=== PATIENT | female | born 1980 | race African-American/Black ===

== ENCOUNTER 2023-04-15 15:28 | Emergency (ER) | payer SELFPAY ==
--- OUTSIDE RECORDS SUMMARY | 2023-04-15 15:33 | XMS REPORT | Continuity of Care Document ---
:1980 Author Organization [facility] t Address [address] [place] [address] Care Team Providers Name Role Phone MAIA GAFFNEY Primary Care Physician Unavailable Brice Tucker Attending Clinician BRICE ARGUELLO Attending Clinician Unavailable BRICE ARGUELLO Admitting Clinician Unavailable Problems This patient has no known problems. Allergies, Adverse Reactions, Alerts Allergy Allergy Status Severity Reaction(s) Onset Inactive Treating Comm ents Source Name Type Date Date Clinician NO KNOWN Drug Active Univers ALLERGIE [facility] ity of [facility] Social History Social Habit Start Date Stop Date Quantity Comments Source History of Smokes tobacco University of tobacco use daily [facility] Tobacco use and 2018-02-22 2018-02-22 Smokeless tobacco Un iversity of exposure 00:00:00 00:00:00 non-user [facility] Sex Assigned At [birth year] Universit y of 00:00:00 00:00:00 [facility] Smoking Status Start Date Stop Date Source Smokes tobacco daily 2018-02-22 00:00:00 [facility] Medications Ordered Filled Start Stop Current Ordering Indication Dosage Frequency Signature Comments Components Source Medication Medication Date Date Medication? Clinician (SIG) Name Name ibuprofen No 800mg 800 mg, Uni vers (IBU) 12-13 Oral, ity of tablet 800 01:30: 01:30 ONCE, 1 [place] as mg 00 :00 dose, On Medical Tu12/12/22 Branch at 2030, SEBASTIAN traMADoL No 50mg 50 mg, Univer s (ULTRAM) 12-13 Oral, ity of tablet 50 01:22: 01:30 [place]CE, 1 [place] :[place] dose, On Medical Sun12/12/22 Branch at 2030, SEBASTIAN ibuprofen Yes [id number] 800mg Take 1 Univers 800 mg 12-12 9104 tablet by ity of tablet 00:00: mouth [place] 00 every 8 Medical (eight) Branch hours as needed for Pain (scale 4-6). traMADoL 50 No [id number] 50mg Take 1 Uni vers mg tablet 12-12 tablet by ity of 00:00: 04:59 mouth [place] 00 :00 every 8 Medical (eight) Branch hours as needed for Pain (scale 4-6) for up to 7 days. Indication s: acute pain cyclobenzap Yes 5mg Take 1 Univ ers rine 5 mg 9- tablet by ity o f tablet 00:00: mouth 3 [place] 00 (three) Medical times Branch daily. traMADOL Yes 50mg Take 1 Univers (ULTRAM) 50 9-06 tablet by ity of mg tablet 00:00: mouth [place] 00 every 6 Medical (six) Branch hours as needed for Pain (scale 4-6). Vital Signs Vital Name Observation Time Observation Value Comments Source Systolic blood 2022-12-13 01:06:00 144 mm[facility]Hg[facility] [place] [facility] Diastolic blood 2022-12-13 01:06:00 87 mm[facility]Hg[facility] [place] [facility] [place] Heart rate 2022-12-13 01:06:00 80 /min [facility] Body temperature 2022-12-13 01:06:00 37.22 [facility] Respiratory rate 2022-12-13 01:06:00 18 /min [facility] Body height 2022-12-13 01:06:00 170.2 cm [facility] Body weight 2022-12-13 01:06:00 99.338 kg [facility] BMI 2022-12-13 01:06:00 34.30 kg/m2 [facility] Oxygen saturation in 2022-12-13 01:06:00 98 /min [facility] Arterial blood by [facility] Pulse oximetry Branch Procedures Procedure Date / Time Performed Performing Clinician [facility] ASSIGNMENT OF BENEFITS 2022-12-13 01:28:55 Doctor Unassigned, No [facility] CONSENT/REFUSAL FOR 2022-12-13 01:01:44 Doctor Unassigned, No [facility] DIAGNOSIS AND [facility] TREATMENT Encounters Start End Encounter Admission Attending Care Care Encounter Source Date/Time Date/Time Type Type Clinicians Facility Department ID 2022-12-12 2022-12-12 Emergency [facility] [id number] Univers 20:10:00 21:34:00 [place] [id number] i ty [facility] [id number] [facility] [id number] [facility] 084 Branch 2022-12-12 2022-12-12 Emergency X [facility] ERT [id number] Univers 20:10:00 21:34:00 BRICE angel [facility] Results This patient has no known results.
[2023-04-15] MEDS ORDERED: ACETAMINOPHEN 500 MG TAB ONE (17:30)
[2023-04-15 17:55] LABS: SARS-CoV-2 Antigen Rapid Res Negative (Negative)
--- NOTE | 2023-04-15 18:17 | ER ---
Nurse's Notes [facility] Name: Camille Chandler Age: 43 yrs Sex: Female : 1980 Arrival Date: 04/15/2023 Time: 15:28 Bed 11 Private MD: Diagnosis: Influenza due to identified novel influenza A virus with other respiratory manifestations Presentation: 04/15 15:47 Chief complaint: Patient states: fever onset and is now having eye pain. Pt cm10 denies congestion. Reports dry cough. Coronavirus screen: Vaccine status: Patient reports being unvaccinated. Client denies travel out of the [place] in the last 14 days. Ebola Screen: Patient denies travel to an Ebola-affected area in the 21 days before illness onset. No symptoms or risks identified at this time. Initial Sepsis Screen: Does the patient meet any 2 criteria? No. Patient's initial sepsis screen is negative. Does the patient have a suspected source of infection? No. Patient's initial sepsis screen is negative. Risk Assessment: Do you want to hurt yourself or someone else? Patient reports no desire to harm self or others. Onset of symptoms was April 15, 2023. 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 - Social history:: Smoking status: Patient reports the use of cigarette tobacco products, denies chronic smoking, but will smoke occasionally. Screenin:20 [facility] ED Fall Risk Assessment (Adult) History of falling in the last 3 months, jl7 including since admission No falls in past 3 months (0 pts) Score/Fall Risk Level 0 - 2 = Low Risk Oriented to surroundings, Maintained a safe environment. Abuse screen: Denies threats or abuse. Denies injuries from another. Nutritional screening: No deficits noted. Tuberculosis screening: No symptoms or risk factors identified. Assessment: 17:20 General: Appears in no apparent distress. uncomfortable, Behavior is calm, cooperative, jl7 appropriate for age. Pain: Complains of pain in headache, sinus pressure Pain currently is 8 out of 10 on a pain scale. Neuro: Smith Agitation-Sedation Scale (RASS): 0 - Alert and Calm Level of Consciousness is awake, alert, obeys commands, Oriented to person, place, time, situation. Cardiovascular: Patient's skin is warm and dry. Respiratory: Airway is patent Respiratory effort is even, unlabored, Respiratory pattern is regular, symmetrical. Derm: Skin is pink, warm \T\ dry. Vital Signs: 15:47 BP 142 / 82; Pulse 87; Resp 18 S; Temp 99.1; Pulse Ox 99% on R/A; Weight 95.25 kg (R); cm10 Height 5 ft. 7 in. ; Pain 8/10; 17:20 Temp 99.2(O); jl7 15:47 Body Mass Index 32.89 (95.25 kg, 170.18 cm) cm10 15:47 Pain Scale: Adult cm10 ED Course: 15:31 Patient arrived in ED. mr 15:48 Triage completed. cm10 15:48 Taty Cisneros FNP is [facility] jh7 15:48 Aamir Frey MD is Attending Physician. 7 15:48 Arm band placed on Patient placed in an exam room, on a stretcher. cm10 17:15 COVID swab sent to lab. Flu and/or RSV swab sent to lab. jl7 17:19 Andi Mack, RN is Primary Nurse. jl7 17:20 Patient has correct armband on for positive identification. Provided Education on: jl7 tests. 19:04 No provider procedures requiring assistance completed. Patient did not have IV access jl7 during this emergency room visit. Administered Medications: 17:19 Drug: Acetaminophen PO 1000 mg PO once Route: PO; jl7 19:05 Follow up: Response: No adverse reaction; Marked relief of symptoms jl7 Medication: 17:20 VIS not applicable for this client. jl7 Outcome: 18:17 Discharge ordered by . 7 19:04 Discharged to home ambulatory, jl7 19:04 Condition: stable 19:04 Discharge instructions given to patient, Instructed on discharge instructions, follow up and referral plans. medication usage, Demonstrated understanding of instructions, follow-up care, medications, Prescriptions given X 2, 19:05 Patient left the ED. jl7 Signatures: Kathy Cowart, Reg Reg mr Andi Mack, RN RN jl7 Taty Cisneros, SERVICE BAR CASHIER SERVICE BAR CASHIER jh7 Ofelia Hong, MICHELLE RN cm10
--- NOTE | 2023-04-15 18:17 | EDPHYS ---
Physician Documentation [facility] Name: Camille Chandler Age: 43 yrs Sex: Female : 1980 Arrival Date: 04/15/2023 Time: 15:28 Bed 11 Private MD: ED Physician Aamir Frey HPI: 04/15 15:47 This 43 yrs old Black Female presents to ER via Ambulatory with complaints of Fever, jh7 Eye Pain. 15:47 The patient reports fever, not measured (subjective). Onset: The symptoms/episode jh7 began/occurred 3 day(s) ago. Associated signs and symptoms: Pertinent positives: arthralgias, chills, cough, Pertinent negatives: abdominal pain, chest pain, shortness of breath. 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 - Social history:: Smoking status: Patient reports the use of cigarette tobacco products, denies chronic smoking, but will smoke occasionally. ROS: 15:47 Eyes: Negative for injury, pain, redness, and discharge, ENT: Negative for injury, jh7 pain, and discharge, Neck: Negative for injury, pain, and swelling, Cardiovascular: Negative for chest pain, palpitations, and edema, Back: Negative for injury and pain, MS/Extremity: Negative for injury and deformity, Skin: Negative for injury, rash, and discoloration, Neuro: Negative for headache, weakness, numbness, tingling, and seizure, 15:47 Constitutional: Positive for body aches, chills, fever, 15:47 Respiratory: Positive for cough, Negative for shortness of breath, wheezing, 15:47 All other systems are negative, Exam: 15:47 Constitutional: This is a well developed, well nourished patient who is awake, alert, jh7 and in no acute distress. 15:47 Head/Face: Normocephalic, atraumatic. Eyes: Pupils equal round and reactive to light, extra-ocular motions intact. Lids and lashes normal. Conjunctiva and sclera are non-icteric and not injected. Cornea within normal limits. Periorbital areas with no swelling, redness, or edema. Neck: Trachea midline, no thyromegaly or masses palpated, and no cervical lymphadenopathy. Supple, full range of motion without nuchal rigidity, or vertebral point tenderness. No Meningismus. Cardiovascular: Regular rate and rhythm with a normal S1 and S2. No gallops, murmurs, or rubs. Normal PMI, no JVD. No pulse deficits. Respiratory: Lungs have equal breath sounds bilaterally, clear to auscultation and percussion. No rales, rhonchi or wheezes noted. No increased work of breathing, no retractions or nasal flaring. Abdomen/GI: Soft, non-tender, with normal bowel sounds. No distension or tympany. No guarding or rebound. No evidence of tenderness throughout. Back: No spinal tenderness. No costovertebral tenderness. Full range of motion. Skin: Warm, dry with normal turgor. Normal color with no rashes, no lesions, and no evidence of cellulitis. MS/ Extremity: Pulses equal, no cyanosis. Neurovascular intact. Full, normal range of motion. Neuro: Awake and alert, GCS 15, oriented to person, place, time, and situation. Motor strength 5/5 in all extremities. Sensory grossly intact. Normal gait. 15:47 ENT: Posterior pharynx: erythema, that is mild, Vital Signs: 15:47 BP 142 / 82; Pulse 87; Resp 18 S; Temp 99.1; Pulse Ox 99% on R/A; Weight 95.25 kg (R); cm10 Height 5 ft. 7 in. ; Pain 8/10; 17:20 Temp 99.2(O); jl7 15:47 Body Mass Index 32.89 (95.25 kg, 170.18 cm) cm10 15:47 Pain Scale: Adult cm10 MDM: 15:48 Patient medically screened. [facility] 18:05 Differential diagnosis: viral Infection, URI. Data reviewed: vital signs, nurses notes. [facility] I considered the following discharge prescriptions or medication management in the emergency department Medications were administered in the Emergency Department. See MAR. Counseling: I had a detailed discussion with the patient and/or guardian regarding the historical points, exam findings, and any diagnostic results supporting the discharge/admit diagnosis, to return to the emergency department if symptoms worsen or persist or if there are any questions or concerns that arise at home. Response to treatment: the patient's symptoms have mildly improved after treatment. 04/15 15:49 Order name: Flu; Complete Time: 18:02 [facility] 04/15 15:49 Order name: SARS RAPID; Complete Time: 18:02 [facility] Administered Medications: 17:19 Drug: Acetaminophen PO 1000 mg PO once Route: PO; [facility] 19:05 Follow up: Response: No adverse reaction; Marked relief of symptoms [facility] Disposition: 04/16 09:41 Co-signature as Attending Physician, Aamir Frey MD I reviewed the patient's care rn provided by the Advanced Practice Provider and agree with the diagnosis and treatment plan. Disposition Summary: 04/15/23 18:17 Discharge Ordered Notes: Location: Home [facility] Problem: new [facility] Symptoms: are unchanged [facility] Condition: Stable [facility] Diagnosis - Influenza due to identified novel influenza A virus with other respiratory [facility] manifestations Followup: [facility] - With: Private Physician - When: 2 - 3 days - Reason: Recheck today's complaints Discharge Instructions: - Discharge Summary Sheet [facility] - Influenza, Adult [facility] Forms: - Work release form em1 - Medication Reconciliation Form [facility] - Thank You Letter [facility] - Patient Portal Instructions [facility] - Leadership Thank You Letter [facility] Prescriptions: - Tamiflu 75 mg Oral Capsule - take 1 capsule ORAL route every 12 hours for 5 days; 10 capsule; Refills: 0, [facility] Product Selection Permitted - Tessalon Perles 100 mg Oral Capsule - take 1 capsule ORAL route every 8 hours As needed; 15 capsule; Refills: 0, [facility] Product Selection Permitted Signatures: Dispatcher [employer] Aamir Rhodes MD MD rn Leal, Jahala, RN RN jl7 Taty Cisneros FNP FNP jh7 Martinez, Clarissa RN RN cm10
[2023-04-15 19:10] VITALS: BP 142/82; O2SAT 99
[2023-04-15 19:11] VITALS: TEMP 99.2
== END 2023-04-15 19:05 | disposition home or self-care (01) ==
LOC: ER 15:28
DX: J10.1 Influenza due to other identified influenza virus with other respiratory manifestations (principal); Z11.52 Encounter for screening for COVID-19
CPT/HCPCS: 36415; 87804; 87811; 99283

== ENCOUNTER 2023-11-07 12:03 | Emergency (ER) | payer SELFPAY ==
[2023-11-07] MEDS ORDERED: FAMOTIDINE 20 MG/2 ML VIAL IV ONE (12:20)
[2023-11-07] MEDS ORDERED: METHYLPREDNISOLONE 125 MG INJ ONE (12:20)
[2023-11-07] MEDS ORDERED: DIPHENHYDRAMINE 50 MG/ML VIAL ONE (12:20)
--- NOTE | 2023-11-07 15:02 | ER ---
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 Coronavirus screen: At this time, the client does not indicate any symptoms associated with coronavirus-19. Ebola Screen: Patient negative for fever greater than or equal to 101.5 degrees Fahrenheit, and additional compatible Ebola Virus Disease symptoms Patient denies exposure to infectious person. Patient denies travel to an Ebola-affected area in the 21 days before illness onset. No symptoms or risks identified at this time. Initial Sepsis Screen: Does the patient meet any 2 criteria? No. Patient's initial sepsis screen is negative. Does the patient have a suspected source of infection? No. Patient's initial sepsis screen is negative. Risk Assessment: Do you want to hurt yourself or someone else? Patient reports no desire to harm self or others. 12:11 Method Of Arrival: Ambulatory iw 12:11 Acuity: JOSE DE JESUS 4 iw 12:14 Onset of symptoms was November 07, 2023. iw 12:14 Acuity: JOSE DE JESUS 3 iw Triage Assessment: 12:30 Bite description: bite sustained to left hand by a wasp, animal information: iw vaccination(s) is not applicable. Historical: - Allergies: 12:12 No Known Allergies; iw - Home Meds: 12:12 None [Active]; iw - PMHx: 12:12 None; iw - PSHx: 12:12 section; iw - Social history:: Smoking status: Patient reports the use of cigarette tobacco products. - Family history:: not pertinent. - Hospitalizations: : No recent hospitalization is reported. Screenin:15 [facility] ED Fall Risk Assessment (Adult) History of falling in the last 3 months, iw including since admission No falls in past 3 months (0 pts). Abuse screen: Denies threats or abuse. Denies injuries from another. Nutritional screening: No deficits noted. Tuberculosis screening: No symptoms or risk factors identified. Assessment: 12:14 General: Appears in no apparent distress. Behavior is anxious. Pain: Complains of pain iw in palmar aspect of distal phalanx of left thumb. Neuro: Level of Consciousness is awake, alert, obeys commands, Oriented to person, place, time, situation, Moves all extremities. Full function. Cardiovascular: Patient's skin is warm and dry. Respiratory: Respiratory effort is even, unlabored, Respiratory pattern is regular, symmetrical. Derm: Skin is healthy with good turgor, Skin is normal. Musculoskeletal: Range of motion: intact in all extremities. 13:30 Reassessment: Patient appears in no apparent distress at this time. Patient and/or iw family updated on plan of care and expected duration. Pain level reassessed. Patient is alert, oriented x 3, equal unlabored respirations, skin warm/dry/pink. Patient states feeling better. Patient states symptoms have improved. 15:28 Reassessment: Patient appears in no apparent distress at this time. Patient and/or iw family updated on plan of care and expected duration. Pain level reassessed. Patient is alert, oriented x 3, equal unlabored respirations, skin warm/dry/pink. Patient states feeling better. Vital Signs: 12:11 BP 121 / 62; Pulse 85; Resp 16; Temp 97.6; Pulse Ox 96% on R/A; Weight 91.17 kg; Height iw 5 ft. 7 in. ; 15:28 BP 147 / 88; Pulse 74; Resp 16; Temp 98.1; Pulse Ox 100% on R/A; Pain 0/10; iw 12:11 Body Mass Index 31.48 (91.17 kg, 170.18 cm) iw 15:28 Pain Scale: Adult iw ED Course: 12:05 Patient arrived in ED. im 12:05 Aamir Frey MD is Attending Physician. rn 12:11 Lanette Limon, EMMA is Primary Nurse. iw 12:12 Triage completed. iw 12:12 Arm band placed on. iw 12:15 Patient has correct armband on for positive identification. Provided Education on: . iw 12:20 Inserted saline lock: 20 gauge in right antecubital area, using aseptic technique. iw 15:28 No provider procedures requiring assistance completed. IV discontinued, intact, iw bleeding controlled, No redness/swelling at site. Pressure dressing applied. Administered Medications: 12:29 Drug: diphenhydrAMINE IVP 50 mg IVP once Route: IVP; Site: right antecubital; iw 12:29 Drug: Famotidine IVP 20 mg IVP once; dilute with 10 mL 0.9% NaCl; give over 2 minutes iw Route: IVP; Site: right antecubital; 12:30 Drug: MethylPrednisoLONE IVP 125 mg IVP once Route: IVP; Site: right antecubital; iw Medication: 12:30 VIS not applicable for this client. iw Outcome: 15:01 Discharge ordered by . emma 15: Discharged to home ambulatory, iw 15: Condition: good 15:29 Discharge instructions given to patient, Instructed on discharge instructions, follow up and referral plans. Demonstrated understanding of instructions, follow-up care, 15:29 Patient left the ED. iw Signatures: Lanette Limon RN RN iw Aamir Frey MD MD rn Mendoza, Itzel
--- NOTE | 2023-11-07 15:02 | EDPHYS ---
Physician Documentation [facility] Name: Camille Chandler Age: 43 yrs Sex: Female : 1980 Arrival Date: 11/07/2023 Time: 12:03 Bed 9 Private MD: ED Physician Aamir Frey HPI: 11/06 13:00 This 43 yrs old Black Female presents to ER via Ambulatory with complaints of Insect rn Bite - wasp. 13:00 The patient was bitten on the left hand, by a wasp, in an unprovoked manner. Onset: The rn symptoms/episode began/occurred just prior to arrival. Severity of symptoms: At their worst the symptoms were mild, in the emergency department the symptoms are unchanged. The patient has not experienced similar symptoms in the past. The patient has not recently seen a physician. Patient reports stung by wasp on left hand. Happened just prior to arrival. Reports itching but no shortness of breath or other symptoms. No rash.. Historical: - Allergies: 12:12 No Known Allergies; iw - Home Meds: 12:12 None [Active]; iw - PMHx: 12:12 None; iw - PSHx: 12:12 section; iw - Social history:: Smoking status: Patient reports the use of cigarette tobacco products. - Family history:: not pertinent. - Hospitalizations: : No recent hospitalization is reported. ROS: 13:00 Constitutional: Negative for fever, chills, and weight loss, Cardiovascular: Negative rn for chest pain, palpitations, and edema, Respiratory: Negative for shortness of breath, cough, wheezing, and pleuritic chest pain, Abdomen/GI: Negative for abdominal pain, nausea, vomiting, diarrhea, and constipation, MS/Extremity: Positive for wasp sting to left hand Skin: Negative for injury, rash, and discoloration, Neuro: Negative for headache, weakness, numbness, tingling, and seizure, Exam: 13:00 Constitutional: This is a well developed, well nourished patient who is awake, alert, rn and in no acute distress. Eyes: Pupils equal round and reactive to light, extra-ocular motions intact. Lids and lashes normal. Conjunctiva and sclera are non-icteric and not injected. Cornea within normal limits. Periorbital areas with no swelling, redness, or edema. ENT: No oral swelling, no stridor Cardiovascular: Regular rate and rhythm. No pulse deficits. Respiratory: No increased work of breathing, no retractions or nasal flaring. Skin: No hives MS/ Extremity: Pulses equal, no cyanosis. Neurovascular intact. Full, normal range of motion. Equal circumference. Neuro: Awake and alert, GCS 15 Vital Signs: 12:11 BP 121 / 62; Pulse 85; Resp 16; Temp 97.6; Pulse Ox 96% on R/A; Weight 91.17 kg; Height iw 5 ft. 7 in. ; 15:28 BP 147 / 88; Pulse 74; Resp 16; Temp 98.1; Pulse Ox 100% on R/A; Pain 0/10; iw 12:11 Body Mass Index 31.48 (91.17 kg, 170.18 cm) iw 15:28 Pain Scale: Adult iw MDM: 12:05 Patient medically screened. rn 14:38 Differential diagnosis: Wasp envenomation. Data reviewed: vital signs, nurses notes, rn and as a result, I will discharge patient. Counseling: I had a detailed discussion with the patient and/or guardian regarding the historical points, exam findings, and any diagnostic results supporting the discharge/admit diagnosis, the need for outpatient follow up, to return to the emergency department if symptoms worsen or persist or if there are any questions or concerns that arise at home. Response to treatment: the patient's symptoms have markedly improved after treatment, and as a result, I will discharge patient. Special discussion: I discussed with the patient/guardian in detail that at this point there is no indication for admission to the hospital. It is understood, however, that if the symptoms persist or worsen the patient needs to return immediately for re-evaluation. 11/06 12:15 Order name: IV Start; Complete Time: 12:30 rn Administered Medications: 12: Drug: diphenhydrAMINE IVP 50 mg IVP once Route: IVP; Site: right antecubital; iw 12:29 Drug: Famotidine IVP 20 mg IVP once; dilute with 10 mL 0.9% NaCl; give over 2 minutes iw Route: IVP; Site: right antecubital; 12:30 Drug: MethylPrednisoLONE IVP 125 mg IVP once Route: IVP; Site: right antecubital; iw Disposition Summary: 11/07/23 15:01 Discharge Ordered Notes: Location: Home rn Problem: new rn Symptoms: have improved rn Condition: Stable rn Diagnosis - Toxic effect of venom of wasps rn Followup: rn - With: Private Physician - When: As needed - Reason: Recheck today's complaints, Re-evaluation by your physician Discharge Instructions: - Discharge Summary Sheet rn - Bee, Wasp, or Hornet Sting, Adult rn Forms: - Medication Reconciliation Form rn - Antibiotic government minister - Prescription Opioid Use rn - Patient Portal Instructions rn - Leadership Thank You Letter rn - Work release form ld1 Prescriptions: - Prednisone 20 mg Oral Tablet - take 3 tablets ORAL route once daily for 5 days; 15 tablet; Refills: 0, Product rn Selection Permitted Signatures: Lanette Limon RN RN iw Aamir Frey MD MD rn
[2023-11-07 16:00] VITALS: BP 147/88; TEMP 98.1; O2SAT 100
== END 2023-11-07 15:29 | disposition home or self-care (01) ==
LOC: ER 12:03
DX: T63.461A Toxic effect of venom of wasps, accidental (unintentional), initial encounter (principal)
CPT/HCPCS: 96374; 96375; 99284; J1200; J2919

== ENCOUNTER 2025-03-29 20:28 | Emergency (ER) | payer OTHER ==
[2025-03-29] MEDS ORDERED: HYDROCODONE/APAP 10/325 TAB ONE (20:59)
[2025-03-29] MEDS ORDERED: SMZ./TMP. 800/160 MG TABLET ONE (21:01)
[2025-03-29] MEDS ORDERED: CEPHALEXIN 250 MG CAP ONE (21:01)
[2025-03-29] MEDS ORDERED: LIDOCAINE 1% 20 ML MDV ONE (21:01)
--- NOTE | 2025-03-29 21:28 | RAD REPORT ---
EXAMINATION: XR Foot Left 3 View CLINICAL INDICATION: Female, 45 years old. [facility] MAIN left heel ulcer Bed Name: IW1 TECHNIQUE: 3 view radiographs of the left foot were obtained. COMPARISON: No prior exam. FINDINGS: No evidence of fracture or dislocation. Normal alignment. No evidence of arthropathy or oth er focal bone lesion. Soft tissues are unremarkable. Small calcaneal spur. No significant degenerative changes. IMPRESSION: No acute or significant abnormalities.
[2025-03-29 22:03] LABS: Anion Gap 6.6 mEq/L (5.0-15.0); BUN Blood Urea Nitrogen 12.0 mg/dL (7-18); Glucose Level 101.0 mg/dL (74-106); Potassium 3.6 mEq/L (3.5-5.1)
--- NOTE | 2025-03-29 22:17 | EDPHYS ---
Physician Documentation [facility] Name: Camille Chandler Age: 45 yrs Sex: Female : 1980 Arrival Date: 03/29/2025 Time: 20:28 Bed 11 Private MD: ED Physician Ray Nelson HPI: 03/29 20:34 This 45 yrs old Black Female presents to ER via Unassigned with complaints of Wound sp4 Check - left foot. 03/30 19:22 45-year-old female presents with complaint of draining ulcer to the left heel. Patient sp4 states that she may have stepped on a rock several days ago and this has developed into a painful ulcer that is now draining pus. Ulcer is on the underside of the heel. 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 - Infectious Disease History:: Denies. - Social history:: Smoking status: Patient denies any tobacco usage or history of. - Family history:: not pertinent. ROS: 03/30 19:22 Constitutional: Negative for fever, chills, and weight loss, negative for left heel sp4 pain positive for left heel draining ulcer All other systems are negative, Exam: 19:22 Constitutional: This is a well developed, well nourished patient who is awake, alert, sp4 and in no acute distress. Head/Face: Normocephalic, atraumatic. Eyes: Pupils equal round and reactive to light, extra-ocular motions intact. Lids and lashes normal. Conjunctiva and sclera are not injected. Cornea within normal limits. Periorbital areas with no swelling, redness, or edema. ENT: Nares patent. No nasal discharge, no septal abnormalities noted. Tympanic membranes are normal and external auditory canals are clear. Oropharynx with no redness, swelling, or masses, exudates, or evidence of obstruction, uvula midline. Mucous membranes moist. Neck: Trachea midline, no thyromegaly or masses palpated, and no cervical lymphadenopathy. Supple, full range of motion without nuchal rigidity, or vertebral point tenderness. Chest/axilla: Normal chest wall appearance and motion. Nontender with no deformity. No lesions are appreciated. Cardiovascular: Regular rate and rhythm with a normal S1 and S2. No gallops, murmurs, or rubs. No pulse deficits. Respiratory: Lungs have equal breath sounds bilaterally, clear to auscultation and percussion. No rales, rhonchi or wheezes noted. No increased work of breathing, no retractions or nasal flaring. Abdomen/GI: Soft, with normal bowel sounds. No distension or tympany. No guarding or rebound. No evidence of tenderness throughout. Back: No spinal tenderness. No costovertebral tenderness. Skin: Warm, dry with normal turgor. Normal color with no rashes, no lesions, and no evidence of cellulitis. MS/ Extremity: Pulses equal, no cyanosis. Neurovascular intact. Full, normal range of motion. Neuro: Awake and alert, GCS 15, oriented to person, place, time, and situation. Cranial nerves II-XII grossly intact. Motor strength 5/5 in all extremities. Sensory grossly intact. Psych: Awake, alert, with orientation to person, place and time. Behavior, mood, and affect are within normal limits Vital Signs: 03/29 21:40 BP 136 / 87; Pulse 95; Resp 18; Temp 98; Pulse Ox 96% on R/A; Weight 99.34 kg; Height 5 rg5 ft. 4 in. ; Pain 9/10; 21:40 Body Mass Index 37.59 (99.34 kg, 162.56 cm) rg5 21:40 Pain Scale: Adult rg5 [place] Coma Score: 03/30 19:22 Eye Response: spontaneous(4). Motor Response: obeys commands(6). Verbal Response: sp4 oriented(5). Total: 15. Procedures: 19:22 I \T\ D: Incision and drainage was performed for an abscess of the left heel of left foot sp4 Prepped with Betadine, alcohol, Anesthetized with 10 ml's 1% Lidocaine. Incised with #11 blade. Drained small amount purulent fluid. Dressing: sterile 4x4 gauze, Sterile dressing and short cam boot the patient tolerated the procedure well, Ulcer was washed out and drained. Patient tolerated procedure well. Advised dressing changes. Patient was placed in a padded Ortho boot. Splinting: Splint applied to left Achilles and left heel using Ortho 3D boot, applied by myself. Examined by me, post splint application: neurovascular intact, 2+ distal pulses palpable, brisk capillary refill noted, Patient tolerated well. MDM: 03/29 20:45 Medical Screening Exam initiated sp4 03/30 19:22 Differential diagnosis: cellulitis, Positive for Ortho boot application. Differential sp4 diagnosis: Differential diagnosis include infected pressure ulcer, infected puncture wound, diabetic foot ulcer, cellulitis and abscess of foot. Data reviewed: vital signs, nurses notes. Consideration of Admission/Observation Escalation of care including admission/observation considered. ED course: Patient advised 10-day course of antibiotics. Daily dressing changes and irrigation with soap and water. Advised follow-up with primary care physician.. 03/29 20:44 Order name: BMP; Complete Time: 22:13 sp4 03/29 20:44 Order name: Foot Left 3 View XRAY; Complete Time: 22:13 sp4 03/29 20:45 Order name: Dressing - Wound; Complete Time: 21:45 sp4 03/29 20:45 Order name: Gloves, Sterile; Complete Time: 21:26 sp4 03/29 20:45 Order name: Setup Suture Tray; Complete Time: 21:26 sp4 Administered Medications: 03/29 21:07 Drug: Trimethoprim-Sulfamethoxazole PO (160 mg-800 mg (DS) 1 tablet PO once Route: PO; rg5 21:45 Follow up: Response: No adverse reaction; Pain is decreased rg5 21:07 Drug: Cephalexin PO 500 mg PO once Route: PO; rg5 21:45 Follow up: Response: No adverse reaction rg5 21:40 Drug: Lidocaine Infiltration (1 %) 20 ml 20 ml Infiltration once; to bedside {Note: rg5 given by provider.} Volume: 20 ml; Route: Infiltration; Disposition: 03/30 19:30 Chart complete. sp4 Disposition Summary: 03/29/25 22:16 Discharge Ordered Problem: new sp4 Symptoms: have improved sp4 Condition: Stable sp4 Diagnosis - Left heel puncture wound, left heel infected pressure ulcer, tinea pedis - sp4 - Onychomycosis sp4 Followup: sp4 - With: Private Physician - When: 7 - 10 days - Reason: Recheck today's complaints Discharge Instructions: - Discharge Summary Sheet sp4 - Puncture Wound, [id number] sp4 Forms: - Patient Portal Instructions sp4 Prescriptions: - meloxicam 15 mg Oral tablet - take 1 tablet ORAL route daily PRN pain; 30 tablet; Refills: 0, Product sp4 Selection Permitted - Cephalexin 500 mg Oral Capsule - take 1 capsule ORAL route every 12 hours for 10 days; 20 capsule; Refills: 0, sp4 Product Selection Permitted - Fluconazole 200 mg Oral tablet - take 1 tablet ORAL route once daily Once daliy for 20 days; 20 tablet; Refills: sp4 0, Product Selection Permitted - Bactrim DS 800-160 mg Oral Tablet - take 1 tablet ORAL route every 12 hours for 10 days; 20 tablet; Refills: 0, sp4 Product Selection Permitted Signatures: Dispatcher [employer] EDRay Davis MD MD sp4 Anmol Ramos RN RN rg5 Corrections: (The following items were deleted from the chart) 03/29 20:44 20:44 BASIC METABOLIC PANEL+[id number].BRZ ordered. EDMS EDMS
--- NOTE | 2025-03-29 22:17 | ER ---
Nurse's Notes [facility] Name: Camille Chandler Age: 45 yrs Sex: Female : 1980 Arrival Date: 03/29/2025 Time: 20:28 Bed 11 Private MD: Diagnosis: Left heel puncture wound, left heel infected pressure ulcer, tinea pedis - ;Onychomycosis Presentation: 03/29 20:40 Chief complaint: Patient states: pain \T\ swelling on my right foot for a week now. rg5 20:40 Coronavirus screen: Client denies travel out of the [place] in the last 14 days. Ebola rg5 Screen: Patient negative for fever greater than or equal to 101.5 degrees Fahrenheit, and additional compatible Ebola Virus Disease symptoms Patient denies exposure to infectious person. Patient denies travel to an Ebola-affected area in the 21 days before illness onset. Initial Sepsis Screen: Does the patient meet any 2 criteria? No. Patient's initial sepsis screen is negative. Does the patient have a suspected source of infection? No. Patient's initial sepsis screen is negative. Risk Assessment: Do you want to hurt yourself or someone else? Patient reports no desire to harm self or others. Onset of symptoms was March 29, 2025. 20:40 Method Of Arrival: Ambulatory rg5 20:40 Acuity: JOSE DE JESUS 3 rg5 Triage Assessment: 21:40 General: Appears in no apparent distress. uncomfortable, Behavior is calm, cooperative, rg5 appropriate for age. Pain: Complains of pain in right foot Quality of pain is described as aching. EENT: No signs and/or symptoms were reported regarding the EENT system. Neuro: Level of Consciousness is awake, alert, obeys commands, Oriented to person, place, time, situation, Appropriate for age. Cardiovascular: Denies chest pain, Patient's skin is warm and dry. Respiratory: Airway is patent Trachea midline Respiratory effort is even. GI: Abdomen is round obese. : No signs and/or symptoms were reported regarding the genitourinary system. Derm: Skin is intact, Skin is dry, Skin is normal. Musculoskeletal: Circulation, motion, and sensation intact. Range of motion: intact in all extremities, Swelling present in right foot. 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 - Infectious Disease History:: Denies. - Social history:: Smoking status: Patient denies any tobacco usage or history of. - Family history:: not pertinent. Screenin:00 [facility] ED Fall Risk Assessment (Adult) History of falling in the last 3 months, rg5 including since admission No falls in past 3 months (0 pts) Confusion or Disorientation No (0 pts) Intoxicated or Sedated No (0 pts) Impaired Gait Yes (1 pt) Mobility Assist Device Used No (0 pt) Altered Elimination No (0 pt) Score/Fall Risk Level 0 - 2 = Low Risk Oriented to surroundings, Maintained a safe environment. Abuse screen: Denies threats or abuse. Nutritional screening: No deficits noted. Tuberculosis screening: No symptoms or risk factors identified. Assessment: 22:00 Reassessment: No changes from previously documented assessment. Patient and/or family rg5 updated on plan of care and expected duration. Pain level reassessed. Patient is alert, oriented x 3, equal unlabored respirations, skin warm/dry/pink. Vital Signs: 21:40 BP 136 / 87; Pulse 95; Resp 18; Temp 98; Pulse Ox 96% on R/A; Weight 99.34 kg; Height 5 rg5 ft. 4 in. ; Pain 9/10; 21:40 Body Mass Index 37.59 (99.34 kg, 162.56 cm) rg5 21:40 Pain Scale: Adult rg5 [place] Coma Score: 03/30 19:22 Eye Response: spontaneous(4). Motor Response: obeys commands(6). Verbal Response: sp4 oriented(5). Total: 15. ED Course: 03/29 20:32 Patient arrived in ED. im 20:34 Ray Nelson MD is Attending Physician. sp4 20:55 Anmol Ramos, MICHELLE is Primary Nurse. rg5 20:55 Foot Left 3 View XRAY In Process Unspecified. EDMS 21:40 Arm band placed on. rg5 21:56 Triage completed. rg5 22:00 Patient has correct armband on for positive identification. Side rails up X 1. Door rg5 closed. Noise minimized. 22:00 Inserted saline lock: 22 gauge in left forearm, using aseptic technique. Blood rg5 collected. Flushed with 10 mL NS. 22:25 Patient did not have IV access during this emergency room visit. rg5 Administered Medications: 21:07 Drug: Trimethoprim-Sulfamethoxazole PO (160 mg-800 mg (DS) 1 tablet PO once Route: PO; rg5 21:45 Follow up: Response: No adverse reaction; Pain is decreased rg5 21:07 Drug: Cephalexin PO 500 mg PO once Route: PO; rg5 21:45 Follow up: Response: No adverse reaction rg5 21:40 Drug: Lidocaine Infiltration (1 %) 20 ml 20 ml Infiltration once; to bedside {Note: rg5 given by provider.} Volume: 20 ml; Route: Infiltration; Medication: 22:00 VIS not applicable for this client. rg5 Outcome: 22:16 Discharge ordered by . sp4 22:25 Discharged to home ambulatory, rg5 22:25 Condition: stable 22:25 Discharge instructions given to patient, Instructed on follow up and referral plans. Demonstrated understanding of instructions, Prescriptions given X 4, 22:26 Patient left the ED. rg5 Signatures: Dispatcher [employer] EDRay Davis MD MD sp4 Sandra Ornelas Rommel RN RN rg5
[2025-03-30 04:23] VITALS: BP 136/87; TEMP 98; O2SAT 96
== END 2025-03-29 22:26 | disposition home or self-care (01) ==
LOC: ER 20:28
DX: L89.899 Pressure ulcer of other site, unspecified stage (principal); B35.1 Tinea unguium; B35.3 Tinea pedis
CPT/HCPCS: 80048; 36415; 73630; 99284; J2003